=== PATIENT | male | born 1965 | race Caucasian/White ===

== ENCOUNTER 2017-07-28 17:20 | Emergency (ER) | payer OTHER, BC ==
[2017-07-28 17:36] VITALS: BP 148/80; PULSE 94; TEMP 98.2; BMI 28.3
[2017-07-28] MEDS ORDERED: IBUPROFEN 600 MG TABLET (FP) PO ONE (18:38)
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
[2017-07-28] MEDS ORDERED: IBUPROFEN 400 MG TABLET (FP) PO ONE (18:41)
== END 2017-07-28 18:55 | disposition home or self-care (01) ==
LOC: JERFT 17:20
DX: M62.830 Muscle spasm of back (principal); X50.1XXA Overexertion from prolonged static or awkward postures, initial encounter; Y93.89 Activity, other specified; Y92.89 Other specified places as the place of occurrence of the external cause; Y99.0 Civilian activity done for income or pay
CPT/HCPCS: 99281-25

== ENCOUNTER 2019-02-24 22:33 | Emergency (ER) | payer OTHER, BC ==
[2019-02-24 22:39] VITALS: BP 127/57; PULSE 96; TEMP 98.4; BMI 39.5
[2019-02-24] MEDS ORDERED: KETOROLAC TROMETHAMINE 30 MG/1 ML VIAL IM ONE (23:31)
[2019-02-24] MEDS ORDERED: KETOROLAC TROMETHAMINE 30 MG/1 ML VIAL ONE (23:49)
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
== END 2019-02-25 01:20 | disposition home or self-care (01) ==
LOC: JER 22:33
PROC: 3E0233Z Introduction of Anti-inflammatory into Muscle, Percutaneous Approach (ICD-10-PCS; principal; 2019-02-24)
DX: S39.012A Strain of muscle, fascia and tendon of lower back, initial encounter (principal); S30.0XXA Contusion of lower back and pelvis, initial encounter; W03.XXXA Other fall on same level due to collision with another person, initial encounter; X00.8XXA Other exposure to uncontrolled fire in building or structure, initial encounter; Y93.89 Activity, other specified; Y92.098 Other place in other non-institutional residence as the place of occurrence of the external cause; Y99.0 Civilian activity done for income or pay
CPT/HCPCS: 72100-TC-FY; 99283-25

== ENCOUNTER 2023-03-19 09:43 | Emergency (ER) | payer OTHER, BC ==
[2023-03-19 10:15] VITALS: BP 137/94; PULSE 42; RESP 16; TEMP 99.3; BMI 38.7
== END 2023-03-19 10:32 | disposition home or self-care (01) ==
LOC: FER 09:43
DX: R60.9 Edema, unspecified (principal)
CPT/HCPCS: 99282-25

== ENCOUNTER 2024-06-09 09:20 | Emergency (ER) | payer OTHER, BC ==
[2024-06-09] MEDS ORDERED: TRANEXAMIC ACID 1000 MG/10 ML VIAL ONE (09:24)
[2024-06-09] MEDS ORDERED: DIPHTH,PERTUSS(ACELL),TET 0.5 ML DISP.SYRIN IM ONE (09:40)
[2024-06-09 09:46] VITALS: BP 111/100; PULSE 61; RESP 20; TEMP 98.6; BMI 39.2
[2024-06-09] MEDS: DIPHTH,PERTUSS(ACELL),TET 0.5 ML DISP.SYRIN IM ONE (09:55)
[2024-06-09] MEDS: TRANEXAMIC ACID 1000 MG/10 ML VIAL IVPB ONE (09:55)
== END 2024-06-09 11:02 | disposition home or self-care (01) ==
LOC: FER 09:20
PROC: 3E033GC Introduction of Other Therapeutic Substance into Peripheral Vein, Percutaneous Approach (ICD-10-PCS; principal; 2024-06-09)
PROC: 3E0234Z Introduction of Serum, Toxoid and Vaccine into Muscle, Percutaneous Approach (ICD-10-PCS; 2024-06-09)
DX: S81.811A Laceration without foreign body, right lower leg, initial encounter (principal); W26.8XXA Contact with other sharp object(s), not elsewhere classified, initial encounter; Z79.01 Long term (current) use of anticoagulants; Z23 Encounter for immunization
CPT/HCPCS: 90471; 90715; 96374; 99284-25

== ENCOUNTER 2024-07-29 12:00 | Emergency (ER) | payer OTHER, BC ==
[2024-07-29 12:04] VITALS: TEMP 97.5; BMI 38.4
[2024-07-29 13:30] LABS: BASO % 0.4 % (0-2.0); HEMATOCRIT 38.8 % (35.4-49); HEMOGLOBIN 13.2 GM/dL (11.7-16.9); LYMPH % 16.4 % (8-40); MCH 33.9 pg (25.7-33.7); MCHC 33.9 g/dl (32.0-35.9); MEAN PLT VOLUME 8.6 fl (7.5-11.1); MONO % 9.2 % (3.8-10.2); PLATELET COUNT 195 10^3/uL (134-434); RBC 3.88 M/mm3 (4.00-5.60); RDW 12.8 % (11.9-15.9); WHITE BLOOD COUNT 6.8 K/mm3 (4.0-10.0)
[2024-07-29 13:55] LABS: CHLORIDE 93 mmol/L (98-107); SODIUM 127 mmol/L (136-145)
[2024-07-29 13:57] LABS: CALCIUM 10.1 mg/dL (8.5-10.1)
[2024-07-29 13:58] LABS: ALBUMIN 4.1 g/dl (3.4-5.0); CO2 26 mmol/L (21-32); GLUCOSE,RANDOM 95 mg/dL (74-106); MAGNESIUM 2.3 mg/dL (1.8-2.4)
[2024-07-29 14:01] LABS: CREATININE 1.3 mg/dL (0.55-1.3); PHOSPHOROUS 3.2 mg/dL (2.5-4.9); SGOT/AST 32 U/L (15-37); SGPT/ALT 43 U/L (13-61)
[2024-07-29 14:02] LABS: ANION GAP 9 mmol/L (4-13); BILIRUBIN,TOTAL 1.4 mg/dL (0.2-1); POTASSIUM 6.2 mmol/L (3.5-5.1); TOT PROT 7.6 g/dl (6.4-8.2)
[2024-07-29 14:04] LABS: ALK PHOS 56 U/L (45-117)
[2024-07-29] MEDS: SODIUM CHLORIDE 0.9% 1000 ML INFUS.BAG IV ONE (15:02)
[2024-07-29 17:02] LABS: POTASSIUM 5.3 mmol/L (3.5-5.1)
[2024-07-29 17:04] LABS: CALCIUM 9.8 mg/dL (8.5-10.1)
[2024-07-29 17:05] LABS: ALBUMIN 4.2 g/dl (3.4-5.0); BLOOD UREA NITROGEN 35.4 mg/dL (7-18)
[2024-07-29 17:08] LABS: CREATININE 1.3 mg/dL (0.55-1.3)
[2024-07-29 17:09] LABS: BILIRUBIN,TOTAL 1.5 mg/dL (0.2-1)
[2024-07-29 17:10] LABS: TOT PROT 7.8 g/dl (6.4-8.2)
[2024-07-29] MEDS ORDERED: SODIUM ZIRCONIUM CYCLOSILICATE (LOKELMA) 5 GM PACKET ONE (17:30)
[2024-07-29] MEDS: SODIUM ZIRCONIUM CYCLOSILICATE (LOKELMA) 5 GM PACKET PO STA (17:36)
[2024-07-29 18:00] VITALS: BP 105/55; PULSE 61; RESP 20
[2024-07-30 13:31] LABS: HIV INTERPRETATION NEGATIVE (NEGATIVE)
== END 2024-07-29 18:00 | disposition home or self-care (01) ==
LOC: JER 12:00
DX: E87.5 Hyperkalemia (principal); R79.9 Abnormal finding of blood chemistry, unspecified
CPT/HCPCS: 36415; 80053; 83735; 84100; 85025; 86803; 87389; 93005; 93010; 99284-25